=== PATIENT | female | born 1975 | race Caucasian/White ===

== ENCOUNTER 2016-07-02 10:43 | Emergency (ER) | payer BC ==
[~2016-07-02] VITALS: Ht 165.1 cm; Wt 139.4 kg
[~2016-07-02 10:43] MED LIST: ACET-785 PO; ATEN-36 PO; ATOR10TA20 PO; ERGO400T6 PO; FOLI-40 PO; HYDR-3989 PO; METF-200 PO; METH25VI19 IJ; [UNRECOGNIZED DRUG - OTHER] TOP
--- OUTSIDE RECORDS SUMMARY | 2016-07-02 10:47 | XMS REPORT | Continuity of Care Document ---
Author Author [facility] Organization [facility] Address Unknown Phone Unavailable Allergies Medications Problems Procedures Results Encounters ACCT No. Visit Date/Time Discharge Status Pt. Type Provider Facility Loc./Unit Complaint [id number] 03/26/2013 15:45:00 03/26/2013 23 :59:59 CLS Outpatient
--- OUTSIDE RECORDS SUMMARY | 2016-07-02 10:47 | XMS REPORT | Referral Summary ---
Author Author [facility] Organization [facility] Address Unknown Phone Unavailable Care Team Providers Care Corrective Therapist Name Role Phone Coy Morejon Primary Care Physician [phone] Encounter VC Date(s): 08/03/14 - 08/03/14 [facility], [address] [place] [id number] Discharge Diagnosis: Screening Discharge Disposition: 01-Home or Self Care Attending Physician: Coy Morejon DO Admitting Physician: Coy Morejon DO Vital Signs No data available for this section Problem List Condition Effective Dates Status Health Status Informant Allergies(Confirmed) Active 1 Bleeding 2009 Active problems(Confirmed) Depression(Confirmed Active ) GERD(Confirmed) Active Hypertension(Confirm 2004 Active ed) Overweight(Confirmed Active ) PCOS(Confirmed) Active Psoriasis(Confirmed) Active Tension Active headache(Confirmed) Type 2 diabetes 2010 Active mellitus(Confirmed) 1latex Allergies, Adverse Reactions, Alerts Substance Reaction Severity Status Latex Rash Active Medications atenolol 25 mg oral tablet 1 tabs, Oral, Daily, # 90 tabs, 0 Refill(s), 1 tabs Oral Daily Start Date: 08/01/13 Status: Ordered clobetasol 0.05% topical gel 1 bryon, Topical, BID, apply a thin film, prn, # 15 g, 0 Refill(s) Start Date: 08/21/13 Status: Ordered folic acid Daily, 0 Refill(s) Start Date: 08/21/13 Status: Ordered metFORMIN 500 mg oral tablet 2 tabs, Oral, Daily, # 180 tabs, 0 Refill(s), 2 tabs Oral Daily Start Date: 08/01/13 Status: Ordered methotrexate 25 mg/mL injectable solution IntraMuscular, once weekly, 0 Refill(s) Start Date: 08/21/13 Status: Ordered Misc Medication See Instructions, Fat fighters 2 tablets daily, 0 Refill(s) Start Date: 08/21/13 Status: Ordered Miscellaneous DME DME Item One Touch Ultra lancets. Check up to four times per day prn Diag : 250.0, See Instructions, # 1 bottles, 10 Refill(s), Pharmacy: [facility] # [id number], One Touch Ultra lancets. Check up to four times per day prn; Diag : 250.0, Supply Start Date: 10/28/14 Status: Ordered Miscellaneous DME DME Item One Touch Ultra testing strips or compatable. Check up to four times per day Diag : 250.0, See Instructions, # 1 bottles, 10 Refill(s), Pharmacy: [facility] #[id number], One Touch Ultra testing strips or compatable. Check up to four time... Start Date: 10/28/14 Status: Ordered Results No data available for this section Immunizations Vaccine Date Refusal Reason influenza virus vaccine, live 12/07/11 pneumococcal 23-polyvalent vaccine 04/11/10 tetanus/diphtheria/pertussis, acel(Tdap) 09/08/11 Procedures Procedure Date Related Diagnosis Body Site section 2008 Tubal ligation 2009 section 2006 Tonsillectomy 1999 Cholecystectomy 1997 Appendectomy 1977 Social History Social History Type Response Smoking Status Current every day smoker; Tobacco use per day: Less than Pack1 1Smokes 5 cigarettes daily. Assessment and Plan No data available for this section
--- OUTSIDE RECORDS SUMMARY | 2016-07-02 10:48 | XMS REPORT | Referral Summary ---
Author Author [facility] Organization [facility] Address Unknown Phone Unavailable Care Team Providers Care Charge Lpn Name Role Phone Coy Morejon Primary Care Physician [phone] Encounter VC Date(s): 08/03/14 - 08/03/14 [facility], [address] [place] [address] Discharge Diagnosis: Screening Discharge Disposition: 01-Home or [...] Instructions, # 1 bottles, 10 Refill(s), Pharmacy: [facility] # [id number], One Touch Ultra lancets. Check up to four times per day prn; Diag : 250.0, Supply Start Date: 10/28/14 Status: Ordered Miscellaneous DME DME Item One Touch Ultra testing strips or compatable. Check up to four times per day Diag : 250.0, See Instructions, # 1 bottles, 10 Refill(s), Pharmacy: [facility] #[id number], One Touch Ultra testing strips or compatable. [...]
--- OUTSIDE RECORDS SUMMARY | 2016-07-02 10:48 | XMS REPORT | Continuity of Care Document ---
Author Author [facility] Organization [facility] Address Unknown Phone Unavailable Support Name Relationship Address Phone BENNY WEISS MD Caregiver [address] [place] [address] ROBERT CORTEZ DO Caregiver [address] [place], [place] [phone] ECHO PRINCE Next Of Kin [address] [place] [address] C Insurance Providers Payer Name Policy Number Subscriber Name Relationship Blue Cross Other [id number] Byron Agarwal 20 Self Problems Medical Problems Problem Onset Date Status Internal derangement of left knee Unknown Active Internal derangement of left knee Unknown Active Swelling of finger of left hand Unknown Active Medications Medication Dose Route Sig Days/Qty Instructions Order Date Discontinued Date Status Vits W-Ca,Fe,Fa(<1MG) 1 Tab PO DAILY 11/12/08 04/22/09 Discontinued [Prozac] 25 Mg PO DAILY 11/12/08 04/22/09 Discontinued [Habatasol Oint] NEEDED 04/23/09 01/19/10 Discontinued Acetaminophen 325 Mg PO NEEDED 04/23/09 Active [Novalog Insulin] 14 Units SQ BREAKFAST 11/12/08 04/22/09 Discontinued [Novalog Insulin] 8 Units SQ LUNCH 11/12/08 04/22/09 Discontinued [Novalog Insulin] 10 Units SQ SUPPER 11/12/08 04/22/09 Discontinued Insulin Glargine 20 U SQ BEDTIME 11/12/08 04/22/09 Discontinued Atenolol 25 Mg PO DAILY 04/23/09 Active Metformin Hcl 1 Tab PO TWICE A DAY 01/19/10 Active Ergocalciferol 1 Tab PO DAILY 01/19/10 Active Atorvastatin Calcium 10 Mg PO BEDTIME 04/20/11 Active Folic Acid 1 Mg PO DAILY 04/20/11 Active Methotrexate Sodium/Pf 25 Mg IJ WEEKLY - 04/20/11 Active [Metronidazole] 1 TOP PRN 04/20/11 04/20/11 Discontinued [Clevatesol 0.05%] TOP PRN 04/20/11 Active Hydrocodone/Acetaminophen 1-2 Tab PO Every 6 Hours For PAIN 20 Qty 06/26 Active Social History Social History Problem Response Recorded Date/Time Hx Substance Use No 04/16/2014 8:25am Hx Alcohol Use Y SOCIALLY 04/16/2014 8:25am Query Response Start Date Stop Date Smoking Status Unknown if ever smoked Hospital Discharge Instructions No hospital discharge instructions. Plan of Care No plan of care. Functional Status Query Response Date Recorded Physical Hygiene Self April 16, 2014 8:25am Disabilities None April 16, 2014 8:25am Devices Used None April 16, 2014 8:25am Dressing Self April 16, 2014 8:25am Ambulation Self April 16, 2014 8:25am Diet Self April 16, 2014 8:25am Mental Status Alert Oriented April 16, 2014 9:30am Disabilities None April 16, 2014 8:25am Devices Used None April 16, 2014 8:25am Physical Hygiene Self April 16, 2014 8:25am Dressing Self April 16, 2014 8:25am Ambulation Self April 16, 2014 8:25am Diet Self April 16, 2014 8:25am Allergies, Adverse Reactions, Alerts Allergen Type Severity Reaction Status Last Updated Latex Allergy Severe RASH,SOB Active 11/12/08 Immunizations Name Given Type Hx Influenza Vaccination Y 12/2010 Historical Hx Pneumococcal Vaccination Y 2009 Historical Hx Influenza Vaccination Y 12/2010 Historical Vital Signs Acute Vital Signs Vital Response Date/Time Temperature (Fahrenheit) 96.8 deg F (96.8 - 99.1) Temperature (Calculated Celsius) 36.29708 degrees C (36.0 - 37.3) Pulse Rate (adult) 90 bpm (60 - 100) Respiratory Rate 18 breaths/min (10 - 20) O2 Sat by Pulse Oximetry 98 % (90 - 100) Blood Pressure 140/65 mm Hg Height 5 ft 5 in Weight 289 lb Body Mass Index 48.0 kg/m^2 Results Test Source Date Result Interp. Ref. Range Comments Activated Partial Thromboplast Time January 19, 2010 9:07am 28.4 SEC N 24-36 Alanine Aminotransferase (ALT/SGPT) August 01, 2011 3:59pm 10 U/L N 9-52 Albumin January 19, 2010 9:07am 3.92 G/DL N 3.5-5.0 Albumin/Globulin Ratio January 19, 2010 9:07am 1.4 RATIO N 1.1-2.2 Alkaline Phosphatase January 19, 2010 9:07am 100 U/L N 38-126 Anion Gap January 19, 2010 9:07am 9.8 MEQ/L N 5-15 Aspartate Amino Transf (AST/SGOT) August 01, 2011 3:59pm 28 U/L N 14-36 B-Type Natriuretic Peptide January 19, 2010 9:07am < 15 PG/ML L 15-100 BUN/Creatinine Ratio January 19, 2010 9:07am 13 RATIO N 6-26 Basophils # (Auto) January 19, 2010 9:07am 0.1 T/MM3 N 0-0.2 Basophils (%) (Auto) January 19, 2010 9:07am 0.5 % N 0-2 Blood Urea Nitrogen January 19, 2010 9:07am 8.9 MG/DL DN 7-17 Calcium Level January 19, 2010 9:07am 8.9 MG/DL N 8.4-10.2 Calculated Osmolality January 19, 2010 9:07am 273 MOSM/KG N 261-280 Carbon Dioxide Level January 19, 2010 9:07am 26 MEQ/L N 22-30 Chloride Level January 19, 2010 9:07am 106 MEQ/L N 98-107 Creatinine January 19, 2010 9:07am 0.7 MG/DL N 0.7-1.2 Eosinophils # (Auto) January 19, 2010 9:07am 0.3 T/MM3 N 0-0.5 Eosinophils (%) (Auto) January 19, 2010 9:07am 3.1 % N 0-4 Globulin January 19, 2010 9:07am 2.8 G/DL N 2.4-3.6 Glucose Level January 19, 2010 9:07am 114 MG/DL H 65-110 Hematocrit January 19, 2010 9:07am 40.0 % DN 36-46 Hemoglobin January 19, 2010 9:07am 12.9 GM/DL DN 12-16 Human Chorionic Gonadotropin, Qual April 24, 2011 12:40pm Negative - COMMENT PRE-OPO Lymphocytes # (Auto) January 19, 2010 9:07am 2.9 T/MM3 N 1-4.8 Lymphocytes (%) (Auto) January 19, 2010 9:07am 26.1 % N 23-45 Mean Corpuscular Hemoglobin January 19, 2010 9:07am 27.5 UUG DN 26-34 Mean Corpuscular Hemoglobin Concent January 19, 2010 9:07am 32.3 GM/DL N 31-37 Mean Corpuscular Volume January 19, 2010 9:07am 85.3 UM3 N 80-100 Mean Platelet Volume January 19, 2010 9:07am 11.4 UM3 H 7.4-10.4 Monocytes # (Auto) January 19, 2010 9:07am 0.6 T/MM3 N 0-0.8 Monocytes (%) (Auto) January 19, 2010 9:07am 5.0 % N 0-9.0 Neutrophils # (Auto) January 19, 2010 9:07am 7.3 T/MM3 N 1.8-7.7 Neutrophils (%) (Auto) January 19, 2010 9:07am 65.3 % N 33-66 Platelet Count January 19, 2010 9:07am 276 T/MM3 N 130-400 Potassium Level January 19, 2010 9:07am 3.8 MEQ/L N 3.6-5 Prothromb Time International Ratio January 19, 2010 9:07am 0.97 N 0.86- 1.10 THERAPUTIC RANGE=2.00-3.00 FOR ANTI-THROMBOSIS THERAPUTIC RANGE=2.50- 3.50 FOR IMPLANTED VALVE RDW Standard Deviation January 19, 2010 9:07am 45.0 FL N 36.9-50.2 Red Blood Count January 19, 2010 9:07am 4.69 M/MM3 DN 4.00-5.20 Sodium Level January 19, 2010 9:07am 142 MEQ/L N 134-144 Total Bilirubin January 19, 2010 9:07am 0.22 MG/DL N 0.20-1.30 Total Protein January 19, 2010 9:07am 6.7 G/DL N 6.3-8.2 Troponin I January 19, 2010 9:07am 0.010 ng/ml N 0-0.12 White Blood Count January 19, 2010 9:07am 11.1 T/MM3 H 4.5-11.0 Glucometer April 24, 2011 5:36pm 171 mg/dL H 65-110 Lab Scanned Report August 01, 2011 9:46pm LAB TEST FORM REQUEST [id number] - EKG August 25, 2007 2:00pm Complete - Glomerular Filtration Rate Calc January 19, 2010 9:07am 97 - Beta HCG, Quantitative April 30, 2008 10:50am 69606 UIU/L - NORMAL EXPECTED RANGE: NOT DETECTEDGESTATION 1-10 WEEKS: 45-256,380 11-15 WEEKS: 11,556-265,380 16-22 WEEKS: 27,023-111,954 23-40 WEEKS: 24,[phone] Name: BYRON AGARWAL Unit #: [id number] : 1975 Sex: F Loc / Svc: ED DOS: 04/16/14 Signed Report #: [id number] DIAGNOSTIC IMAGING REPORT TYPE OF EXAM: KNEE LEFT 2 VIEW W/ PATELLA Dictated By: LEOBARDO TAYLOR MD Indication: ITS.REASON: knee injury/pain KNEE LEFT 2 VIEW W/ PATELLA Comparison: None Findings: There is no acute fracture, dislocation or malalignment identified. The articular surfaces are smooth. A significant joint effusion is not appreciated. Impression: No acute osseous abnormality. . Procedures No known history of procedures. Encounters Encounter Location Date/Time Registered Emergency Room [facility] 04/16/14 8:21am Recent Diagnosis
--- OUTSIDE RECORDS SUMMARY | 2016-07-02 10:48 | XMS REPORT | Referral Summary ---
Author Author [facility] Organization [facility] Address Unknown Phone Unavailable Care Team Providers Care Graphics Programmer Name Role Phone Coy Morejon Primary Care Physician [phone] Encounter VC Date(s): 10/27/14 - 10/27/14 [facility] [address] [place] [address] Discharge Diagnosis: Type II diabetes mellitus Discharge Diagnosis: Skin rash Discharge Diagnosis: Poor hypertension control Discharge Disposition: 01-Home or Self Care Attending Physician: Coy Morejon DO Admitting Physician: Coy Morejon DO Vital Signs Most recent to 1 oldest [Reference Range]: Temperature Tympanic 36.3 degC [36.6-38.1 degC] *LOW* (10/27/14 10:56 AM) Peripheral Pulse 68 bpm Rate [60-100 bpm] (10/27/14 10:56 AM) Blood Pressure 155/98 mmHg [90-140/60-90 mmHg] *HI* (10/27/14 10:56 AM) Problem List Condition Effective Dates Status Health Status Informant Allergies(Confirmed) Active 1 Bleeding 2008 Active problems(Confirmed) Depression(Confirmed Active ) GERD(Confirmed) Active [...] Instructions, # 1 bottles, 10 Refill(s), Pharmacy: [facility] # [id number], One Touch Ultra lancets. Check up to four times per day prn; Diag : 250.0, Supply Start Date: 10/28/14 Status: Ordered Miscellaneous DME DME Item One Touch Ultra testing strips or compatable. Check up to four times per day Diag : 250.0, See Instructions, # 1 bottles, 10 Refill(s), Pharmacy: [facility] #[id number], One Touch Ultra testing strips or compatable. Check up to four time... Start Date: 10/28/14 Status: Ordered Results No data available for this section Immunizations Vaccine Date Refusal Reason influenza virus vaccine, live 12/07/11 pneumococcal 23-polyvalent vaccine 04/11/10 tetanus/diphtheria/pertussis, acel(Tdap) 09/08/11 Procedures Procedure Date Related Diagnosis Body Site section 2008 Tubal ligation 2008 section 2005 Tonsillectomy 1999 Cholecystectomy 1997 Appendectomy 1977 Social History Social History Type Response Smoking Status Current every day smoker; Tobacco use per day: Less than Pack1 1Smokes 5 cigarettes daily. Assessment and Plan Extracted from: Title: Office Visit Note Author: Coy Morejon DO Date: 10/27/14 Assessment/Plan Poor hypertension control 1. Her blood pressure is poorly controlled at this time. 2. Low salt diet recommended. 3. Daily exercise recommended. 4. Weight loss recommended. 5. Increase atenolol to 50 mg daily. 6. Follow-up in a month for blood pressure management. Patient voiced understanding. Ordered: Office Visit Level 4 Est 12183 Skin rash Pathophysiology of this presentation, and differential diagnosis, discussed in detail with the patient. All questions were answered. 1. At this time she has developed scab formation over the rash, it's difficult to say whether this is hepatic or shingles in nature. 2. Recommended following up at the onset of this presentation with next occurrence. 3. At this time I don't have any restrictions, she may return to work without limitations. Ordered: Office Visit Level 4 Est 26029 Type II diabetes mellitus 1. Based on her last hemoglobin A1c in January 2014, measuring 6.6, at that time her diabetes was well controlled. 2. Continue with metformin at thousand milligrams twice a day. 3. Follow-up in the next month for diabetes management. Ordered: Office Visit Level 4 Est 17672
--- OUTSIDE RECORDS SUMMARY | 2016-07-02 10:48 | XMS REPORT | Continuity of Care Document ---
Author Author Aleyda Okeefe RN Ambulatory Address [address] [place] [address] Phone Unavailable Care Team Providers Care Forging Dies Final Finisher Name Role Phone Gerardominna Coy NOE Unavailable Payers Payer name Insurance type Covered libertarian ID Authorization(s) Unknown Problems Condition Effective Dates (start - stop) Clinical Status Psoriasis (a type of skin inflammation) - *Worse Hypertension, Unspecified - *Stable Morbid obesity with BMI of 50.0-59.9, adult - Persistent Body mass index 50.0-59.9, adult - Persistent Diabetes Mellitus Type 2, Uncomplicated - Persistent Tobacco Abuse - Persistent Depression - *Poor control DMII WO CMP NT ST UNCNTR - OVERWEIGHT - 311 - DEPRESSIVE DISORDER NEC - TENSION HEADACHE NOS - HYPERTENSION NOS - ESOPHAGEAL REFLUX - OTHER PSORIASIS - ALLERGY, UNSPECIFIED - Laboratory Phlebotomist's permit physical examination - *Routine Diabetes Mellitus Type 2, Uncomplicated - *Chronic Hypertension, Unspecified - *Acute Influenza Vaccine - Diabetes Mellitus Type 2, Uncomplicated - *Chronic Hypertension, Unspecified - *Controlled Obesity - *Chronic Laboratory Phlebotomist's permit PE (physical examination) - *Routine Diabetes Mellitus Type 2, Uncomplicated - *Fair Control Hypertension, Unspecified - Uncontrolled Family History Family Member Diagnosis Age At Onset Status Unknown Social History Social History Element Description Quantity Unknown Allergies, Adverse Reactions, Alerts Substance Reaction Severity Status LATEX breaks out Unknown Medications Medication Instructions Dosage Effective Dates (start - stop) Status atenolol 25 mg tablet take 1 Tablet by Oral route every day for 90 days 0 - Active clobetasol 0.05 % topical ointment Clobetasol 0.05% ointment 8 ounces compounded with Aquaphor ointment 8 ounces. Apply BID until resolved 2013 - Active Celexa 20 mg tablet take 2 Tablet (40MG) by oral route every day for 30 days 40 MG - No Longer Active metformin 500 mg tablet take 1 tablet (500MG) by oral route 2 times every day for 90 days with morning and evening meals 500 MG - 2013 Active Lamisil AT 1 % topical cream APPLY TID X 4 WEEKS - Active FOLIC ACID (unknown strength) take 25 Milligram by Oral route - Active Vitamin D3 1,000 unit tablet take 1 by Oral route every day 0 - Active Immunizations Vaccine Date Status Comments Flu (split) (3 yrs or older) completed Results Test Name Date and Time Measure Units Reference Range Abnormal Flag Comments Unknown Vital Signs Date / Time: Height Weight Pulse Rate Blood Pressure Temperature /15:47:00 65.50 in 307.50 lbs 109 /min 130/80 mm[Hg] 98.9 F Procedures Procedure Date Unknown Encounters Encounter Location Date Patient Visit [facility] Patient Visit Conversion Patient Visit [facility] Patient Visit [facility] Patient Visit [facility] Patient Visit [facility] Advance Directives Directive Effective Date Unknown
--- OUTSIDE RECORDS SUMMARY | 2016-07-02 10:52 | XMS REPORT | Continuity of Care Document ---
Author Author Edwin [facility] Organization [facility] Address Unknown Phone Unavailable Support Name Relationship Address Phone BENNY WEISS MD Caregiver [address] [place] [address] ROBERT CORTEZ DO Caregiver [address] [place], [place] [phone] ECHO PRINCE Next Of Kin [address] [place] [address] C Insurance Providers Payer Name Policy Number Subscriber Name Relationship [employer] Other [id number] Byron Agarwal 20 Self Problems Medical Problems [...] F (96.8 - 99.1) Temperature (Calculated Celsius) 36.75819 degrees C (36.0 - 37.3) Pulse Rate [...] 01, 2011 9:46pm LAB TEST FORM REQUEST [id number] - EKG August 25, 2007 2:00pm Complete - Glomerular Filtration Rate Calc January 19, 2010 9:07am 97 - Beta HCG, Quantitative April 30, 2008 10:50am [id number] UIU/L - NORMAL EXPECTED RANGE: NOT DETECTEDGESTATION 1-10 WEEKS: 45-256,380 11-15 WEEKS: 11,556-265,380 16-22 WEEKS: 27,023-111,954 23-40 WEEKS: 24,[phone] Name: BYRON AGARWAL Unit #: [id number] : 1975 Sex: F Loc / Svc: ED DOS: 04/16/14 Signed Report #: [id number] DIAGNOSTIC IMAGING REPORT TYPE OF EXAM: KNEE [...] Encounters Encounter Location Date/Time Registered Emergency Room [facility] 04/16/14 8:21am Recent Diagnosis
--- OUTSIDE RECORDS SUMMARY | 2016-07-02 10:52 | XMS REPORT | Continuity of Care Document ---
Author Author [facility] Organization [facility] Address Unknown Phone Unavailable Allergies Medications Problems Procedures Results Encounters ACCT No. Visit Date/Time Discharge Status Pt. Type Provider Facility Loc./Unit Complaint [id number] 03/26/2013 15:45:00 03/26/2013 23 :59:59 CLS Outpatient
[2016-07-02 11:00] VITALS: TEMP 97.6; Ht 165.1 cm; Wt 139.4 kg
[2016-07-02] MEDS ORDERED: APRE1TAB PO (11:26)
[2016-07-02] MEDS ORDERED: HYDR-4246 PO ×2 (11:30→12:55)
--- NOTE | 2016-07-02 11:30 | ERPDOC ---
Departure Disposition Decision Date: July 02, 2016 Disposition Decision Time: 12:52 Disposition: 01 DISCHARGED HOME, SELF-CARE Impression Impression Impression: Primary Impression: Toe fracture Encounter type: initial encounter Toe: lesser toe Fracture type: closed Phalanx: proximal Physeal involvement: unspecified Laterality: right Qualified Codes: S92.511A - Displaced fracture of proximal phalanx of right lesser toe(s), initial encounter for closed fracture Severity: Moderate Condition: Improved Seen By: Physician only Referrals: ROBERT CORTEZ DO (Family) 2 Days ABIGAIL NELSON MD 2 Days Patient Instructions: Toe Fracture (ED) Problems/Meds/Labs Reviewed?: Yes Medications reviewed and manag: Yes Follow up care ordered?: Yes Mental Status: Alert, Oriented Scripts Hydrocodone/Acetaminophen (Winter 5-325 Tablet) 5-325 Tablet 1 TAB PO Q4HR Y for PAIN for 3 Days, #18 TAB 0 Refills Prov: TONY MORALES DO 07/02/16 HPI - General Medical General Chief Complaint: Lower Extremity Injury Stated Complaint: FELL, INJ R FOOT Time Seen by Provider: 10:44 Source: patient Exam Limitations: no limitations HPI - General Medical Initial Comments 40-year-old female presents to emergency department with a chief complaint of an injury to her left foot. Patient was ambulating in sandals when she tripped and caught her left foot on the stair. She denies falling to the ground, striking her head, loss of consciousness, or neck pain. She denies any other injuries. No other complaints or associated symptoms. Patient notes a moderate dull aching sensation in the 5th toe. Patient states that she pulled the toe straight after it was bent slightly following the injury. No other complaints or associated symptoms. Pain increases with ambulation and improves with rest and positioning. Occurred At: home Onset: Constant Allergies: Coded Allergies: Latex (Verified Allergy, Severe, RASH,SOB, 11/12/08) Past History Past Medical History Metabolic: diabetes, hypertension Respiratory: asthma GI: gallbladder disease Female: other Surgical History General: appendix, gallbladder Reproductive/: D&C, , hysterectomy, tubal ligation, uterine ablation Joint: other Family History Family PMH: FOUND: diabetes Vaccines Hx Influenza Vaccination: Yes (12/2010) Hx Pneumococcal Vaccination: Yes (2009) Social History Smoking Status: Current every day smoker Substance Use Type: does not use Alcohol Intake: none Sexuality: male partner Review of Systems Constitutional Constitutional: DENIES: chills, fever Eyes General: DENIES: erythema, exudate Lids/Accessories: DENIES: erythema, swelling Vision: DENIES: acuity, blurring ENMT Ears: DENIES: drainage, erythema Hearing: DENIES: hearing loss Balance: DENIES: ataxia, falling to one side Sinuses: DENIES: congestion, pain Nose: DENIES: nosebleeds, pain Mouth/Throat: DENIES: painful swallowing, sore throat Teeth: DENIES: pain Jaw: DENIES: pain Cardiovascular Cardiac: DENIES: chest pain, dyspnea on exertion Rhythm/Rate: DENIES: irregular beat, palpitations Vascular: DENIES: pedal edema, unilateral swelling Pulmonary Respiratory: DENIES: cough, dyspnea, pleuritic chest pain, sputum GI Upper Abdomen: DENIES: nausea, pain, vomiting Lower Abdomen: DENIES: diarrhea, pain General: DENIES: burning, dysuria, frequency, urgency Musculoskeletal General: tenderness, DENIES: joint pain Integumentary Skin: DENIES: itching, rash Neurological General: DENIES: change in strength, headache, numbness, weakness Psychiatric Psychiatric: DENIES: emotional instability, suicidal ideation/attempt Endocrine Endocrine: DENIES: polydipsia, polyphagia Hematologic/Lymphatic Hematologic/Lymphatic: DENIES: frequent nosebleeds, lymphadenopathy Allergic/Immunological Allergic/Immunoligical: DENIES: allergic reactions, hives Physical Exam General General Nourishment: well nourished, well developed, appears stated age, no acute distress, adult General Body Habitus: well groomed Vitals and Pain First Documented Vital Signs Date Time Temp Pulse Resp B/P Pulse Ox O2 Delivery O2 Flow Rate FiO2 07/02/16 11:00 97.6 101 18 191/116 99 Room Air Weight: Kilograms: 139.400 Height (feet): 5 Height (inches): 5.00 Triage Pain Scale: RN VS reviewed by Provider: Yes Normal Exams: Head: Normocephalic w/o trauma Eyes: Pupils are PERRLA w/ EOMI, No scleral icterus, irritation, or foreign bodies noted ENMT: No facial trauma, nasal exudates, pharyngeal erythema, or exudates are noted Dental: No fractured, loose, or missing teeth noted Neck: Full range of motion, without adenopathy, JVD, bruits or thyromegaly Chest/Resp: Clear all [place], with good airflow, and symmetry bilaterally CV: Regular rate and rhythm, without murmur or gallop, Pulses 2+ all extremities, capillary refill, <2 seconds all ext., no pedal edema noted Abdomen: Bowel sounds positive, soft, non-tender, non-distended, no hepatosplenomegaly, masses or bruits noted Lymphatic: No lymphadenopathy, or lymphedema noted Musculoskeletal: No tenderness, or deformity noted, good range of motion, all extremities Integumentary: No rashes, hives, or bruising noted, hair and nails, without abnormality Neurologic: Patient is alert, and oriented, cranial nerves, motor/sensory/ cerebellar, exams w/o gross deficits, to observation Psychiatric: Patient exhibits, appropriate attention, emotion and affect Musculoskeletal (brief) Comments Left foot - full range of motion. Diffusely tender to palpation over the 5th toe. Skin is intact. Pulses intact. Sensation intact. Capillary refill less than 2. No other focal bony tenderness in the left lower extremity. No erythema or edema. All other extremities are unremarkable. Differential Diagnoses Considering: Other (sprain/strain/fracture/contusion) Progress Results/Orders Orders Procedure Category Date Status Time Foot Right 3 Views RAD 07/02/16 Resulted 11:27 Ankle Right 3 View RAD 07/02/16 Resulted 11:27 Ibuprofen (Motrin) PHA 07/02/16 Complete 13:00 Medications Current ED Medications Ibuprofen (Motrin) 600 mg O ONCE PO Last administered on 07/02/16t 13:08; Start 07/02/16 at 13:00; Stop 07/02/16 at 13:01; Status DC Progress Progress Imaging is discussed in detail with the patient and questions are answered. Patient is given analgesic pain medication with improvement of symptoms. She is discharged home in improved condition. She is to follow up as instructed. She is to return to the emergency Department if her condition worsens or changes in any manner. Patient is in agreement with the current plan of management. Patient is aware of her elevated blood pressure and is asymptomatic. Patient declines offered further evaluation and treatment of blood pressure in the emergency department. Patient is provided with a prescription for Winter. Patient is discussed with Dr. Nelson of orthopedic surgery who reviews the x-ray. Recommendations are followed. Patient's 4th and 5th toes are ishan taped and the patient is placed in a postoperative shoe with good alignment by the RN. She is distal NV intact post application of post- op shoe. The initial blood pressure was taken with an inappropriately sized cuff which was replaced with a normal appropriately sized cuff and patient's blood pressure was markedly improved. Xray Xray : Xray: Foot L Interpretation: Abnormal (slightly medially angulated fracture of the base of the 5th toe. L ankle: Negative. ), Faxed Report TONY MORALES DO July 02, 2016 11:30
--- NOTE | 2016-07-02 11:43 | NUR ---
XRAY POTABLE XRAY AT BEDSIDE.
--- NOTE | 2016-07-02 12:55 | DI ---
Indication: ITS.REASON: Foot pain, injury PROCEDURE: FOOT RIGHT 3 VIEWS: Encounter: Initial Comparison: None Findings: Mildly displaced fracture of the base of the fifth toe proximal phalanx. This extends near but not definitely into the metatarsophalangeal joint. No additional acute fracture or dislocation seen. Impression: Closed posttraumatic fracture of the fifth toe proximal phalanx base. .
--- NOTE | 2016-07-02 12:56 | DI ---
Indication: ITS.REASON: pain, injury PROCEDURE: ANKLE RIGHT 3 VIEW: Encounter: Initial Comparison: None Findings: There is no acute fracture, dislocation or malalignment identified. Old healed fibular fracture. Impression: No acute osseous abnormality. There is a preliminary report by [facility]. .
[2016-07-02] MEDS ORDERED: IBUPROFEN 600 MG TABLET PO ONE (13:00)
[2016-07-02 13:10] VITALS: BP 170/90; PULSE 81; RESP 18; O2SAT 97
--- NOTE | 2016-07-02 13:10 | NUR ---
DISCHARGE WRITTEN INSTRUCTIONS WITH [facility] REVIEWED AND SENT WITH PT. PT VERBALIZES UNDERSTANDING OF DI AND MEDICATION, DENIES QUESTIONS. REPORTS SLIGHT DECREASE IN PAIN WITH POST-OP SHOE ON. PT AMBULATES OUT OF ER WITH STEADY GAIT AT THIS TIME.
== END 2016-07-02 13:10 | disposition home or self-care (01) ==
LOC: ED 10:43
DX: S92.511A Displaced fracture of proximal phalanx of right lesser toe(s), initial encounter for closed fracture (principal); W18.40XA Slipping, tripping and stumbling without falling, unspecified, initial encounter; Y93.01 Activity, walking, marching and hiking; Y92.009 Unspecified place in unspecified non-institutional (private) residence as the place of occurrence of the external cause; Y99.8 Other external cause status